=== PATIENT | male | born 1985 | race Caucasian/White ===

== ENCOUNTER 2016-11-13 23:56 | Emergency (ER) | payer OTHER ==
--- NOTE | 2016-11-14 01:19 | ED ORDER SUMMARY ---
..... Patient: JEANIE ABDUL OrderSheet [facility] VisitID: [id number] [address] [place] [address] 31y, M Registration Date/Time: 11/13/2016 ORDER SHEET Weight: 102.5 kg Allergies: No Known Drug Allergy GENERAL ORDERS: CBC w Diff Urgent (00:11/14/2016 Carina Mayo) (Ack 0:29 CHategekimana) (0:32 TBowen R.N.) CMP Urgent (00:11/14/2016 Carina Mayo) (Ack 0:29 CHategekimana) (0:32 TBowen R.N.) UA-Culture if indicated Urgent (00:11/14/2016 Carina Mayo) (Ack 0:29 CHategekimana) Amylase Urgent (00:11/14/2016 Carina Mayo) (Ack 0:28 CHategekimana) (0:32 TBowen R.N.) Lipase Urgent (00:11/14/2016 Carina Mayo) (Ack 0:28 CHategekimana) (0:32 TBowen R.N.) MEDICATION ORDERS: IV FLUIDS: IV Saline Lock (:11/14/2016 Carina Mayo) (0:32 TBowen R.N.) ORDER SHEET NOTES: [Electronically signed by Jesus Pelayo Dr. (11/14/2016)] [Electronically signed by Jamee Manrique R.N. (11/14/2016)] [Electronically locked/signed by Jamee Manrique R.N. (11/14/2016)]
--- NOTE | 2016-11-14 01:19 | ED CLINICAL REPORT ---
Clinical Report - Physicians/Mid Levels [facility] [address] [place] [address] 11/13/2016 23:57 Patient: JEANIE ABDUL Time Seen: 00:03; initial patient contact. Arrived- By private vehicle. Historian- patient. HISTORY OF PRESENT ILLNESS Chief Complaint: ABDOMINAL PAIN. This started last night and is now gone (resolved upon arrival in the emergency department). At its maximum, severity described as moderate. When seen in the E.D., it was gone. Modifying factors. Not worsened by anything. Not relieved by anything. It is described as cramping and it is described as located in the epigastric area and radiating to the upper back. The patient has had nausea. No loss of appetite, vomiting or diarrhea. No recent travel. Similar symptoms previously: Many times. Recent medical care: Not recently seen/assessed. REVIEW OF SYSTEMS No constipation, hematemesis, difficulty with urination, fever or chills. All systems otherwise negative, except as recorded above. PAST HISTORY Negative. Surgeries: No history of previous surgery. SOCIAL HISTORY Never smoker. Occasional alcohol use. No drug use. ADDITIONAL NOTES The nursing notes have been reviewed. PHYSICAL EXAM Vital Signs: 11/14/2016 00:06 BP: 162/101. HR: 76. RR: 16. O2 saturation: 99%. Temp: 98.4 F. Pain level now: 1/10. Have been reviewed. Hypertensive. Heart rate normal. Respiratory rate normal. Temperature normal. Oxygen saturation normal. Appearance: Alert. Oriented X3. No acute distress. Eyes: Eyes normal inspection. No scleral icterus. ENT: Dry mucous membranes present. Neck: Normal inspection. CVS: Normal heart rate and rhythm. Heart sounds normal. Respiratory: No respiratory distress. Breath sounds normal. Abdomen: Soft and nontender. Bowel sounds normal. No mass. Back: Normal inspection. No CVA tenderness. Skin: Normal skin color. No rash. Neuro: Oriented X 3. LABS, X-RAYS, AND EKG Laboratory Tests: CBC w Diff: (JORDON: 11/14/2016 00:30) ( MsgRcvd 11/14/2016 00:37) Final results Test Result Flag Units (Reference) WHITE BLOOD COUNT 12.5 H K/uL (4.5-11.5) RED BLOOD COUNT 5.18 M/uL (4.50-5.90) HEMOGLOBIN 15.5 gm/dL (13.5-17.5) HEMATOCRIT 45.7 % (41.0-53.0) MEAN CELL VOLUME 88 fL (80-100) MEAN CORPUSCULAR HGB 30 pg (26-34) MEAN CORPUSCULAR HGB CONC 34 g/dL (31-37) RED CELL DISTRIBUTION WIDTH 12.5 % (11.6-14.8) PLATELET COUNT 295 K/uL (150-400) NEUTROPHIL % 87.7 H % (50-75) LYMPH % 7.3 L % (25-40) MONO % 4.6 % (3-14) EOSINOPHIL % 0.3 % (0-4) BASOPHIL % 0.1 % (0-2) CMP: (JORDON: 11/14/2016 00:30) ( MsgRcvd 11/14/2016 00:51) Final results Test Result Flag Units (Reference) GLUCOSE 113 H mg/dL (70-110) BUN 10 mg/dL (7-18) CREATININE 0.9 mg/dL (0.6-1.3) Estimated GFR >60 mL/min Estimated GFR- >60 mL/min Note: Persistent reduction over 3 months in eGFR<60 mL/min/1.73 m2 defines CKD. Patients with eGFR values>=60 mL/min/1.73 m2 may also have CKD if evidence ofpersistent proteinuria. Additional information may be foundat www.kidney.org. SODIUM 141 mmol/L (136-145) POTASSIUM 3.9 mmol/L (3.5-5.1) CHLORIDE 104 mmol/L (98-107) CARBON DIOXIDE 26 mmol/L (21-32) CALCIUM 9.6 mg/dL (8.5-10.1) TOTAL PROTEIN 8.1 g/dL (6.4-8.2) ALBUMIN 4.5 g/dL (3.3-5.0) BILIRUBIN, TOTAL 0.8 mg/dL (0.0-1.0) ALKALINE PHOSPHATASE 42 L U/L (46-116) AST (SGOT) 18 U/L (15-37) ALT (SGPT) 46 U/L (12-78) LIPASE 157 U/L (73-393) AMYLASE 71 U/L (25-115) . PROGRESS AND PROCEDURES Disposition: Discharged home in good and improved condition. Condition: good. CLINICAL IMPRESSION Acute epigastric abdominal pain of unknown cause. INSTRUCTIONS Drink plenty of fluids. Your Current Medications: CONTINUE TAKING THE FOLLOWING MEDICATIONS: Allergy Oral. Prescription Medications: Hydrocodone/APAP 5mg / 325mg: take 1 orally every 6 hours as needed for pain. Dispense five (5). No refill. Bentyl 20 mg tablets: take 1 orally every 6 hours as needed for abdominal cramps or abdominal discomfort. Dispense thirty (30). No refill. Substitution is permissible. Follow-up: Follow up with your doctor in about three days. Call for an appointment. Screening today revealed the patient's blood pressure to be in the hypertensive range. The patient should follow up with a primary care provider for blood pressure management. (Electronically signed by Jesus Pelayo Dr. 11/14/2016 1:28)
--- NOTE | 2016-11-14 01:19 | ED NURSING NOTES ---
Clinical Report - Nurses [facility] [address] [place] [address] 11/13/2016 23:57 Patient: JEANIE ABDUL TRIAGE Triage time 00:06. Acuity: LEVEL 3. Chief Complaint: ABDOMINAL PAIN. --00:08 TonhowieB, R.N. 00:06 11/14/16. BP: 162/101. HR: 76. RR: 16. O2 saturation: 99%. Temp: 98.4 F. Pain level now: 08/11. --00:08 JameeB, R.N. Weight: 102.5 kg. Height/Length: 70 inches. BMI: 32.4. --00:06 JameeB, R.N. Medications Allergy Oral. --00:06 JameeB R.N. Allergies No Known Drug Allergy. --00:06 Tim, R.N. History Arrived by private vehicle. Historian: patient. This started just prior to arrival. ( pt complains of upper gastric pain). 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 PAST MEDICAL HX: Immunizations: up-to-date. SOCIAL HX: Never smoker. Occasional alcohol use. No drug use. No recent travel. No infectious disease exposure. No known contact with a sick individual. SELF HARM ASSESSMENT: A self harm assessment was performed. The patient answered "no" to the question "Have you recently felt down, depressed, or hopeless?", "Have you noticed less interest or pleasure in doing things?", "Do you have thoughts of harming or killing yourself?", "Are you here because you tried to hurt yourself?", "Have you ever tried to hurt yourself before today?", "Have you recently had thoughts about harming or killing others?" and "Do you have any dangerous items in your possession?". FALL RISK ASSESSMENT: Fall risk assessment completed. No fall risk identified. NUTRITIONAL RISK ASSESSMENT: The nutritional risk assessment revealed no deficiencies. FUNCTIONAL ASSESSMENT: Functional assessment: no impairments noted. LEARNING NEEDS ASSESSMENT: The learning needs assessment revealed no barriers. SKIN INTEGRITY ASSESSMENT: Skin integrity risk assessment completed. No skin integrity risk identified. --00: Flower Dumont PROBLEMS: no known problems. ADDITIONAL SURGERIES: no known surgeries. Interventions ID band on patient. To treatment room. --00: Flower Dumont PHYSICAL ASSESSMENT Ambulatory to room. GENERAL / NEURO / PSYCH: Alert. Oriented X 4. Appears in no acute distress. HEENT: Mucous membranes are pink. RESPIRATORY: Respirations not labored. Breath sounds within normal limits. CVS: Normal sinus rhythm noted. Capillary refill less than 2 seconds. GI / : Abdomen soft and nontender. Bowel sounds within normal limits. SKIN: Skin is warm and dry. --00: Flower Dumont NURSING PROGRESS NOTES Patient identifiers checked. Call light placed in reach. Side rails up. Bed placed in lowest position. Brakes of bed on. --00: Flower Dumont Patient gowned. --00: Flower Dumont 00:32 11/14/2016 Site #1 started via IV in the left antecubital space with an 20g angiocath, with aseptic technique and good blood return; one attempt. Blood drawn: rainbow set. Labeled in the presence of the patient and sent to the lab. Saline lock flushed with 10 mL saline. --: Flower Dumont DISPOSITION / DISCHARGE Departure time: 01:30. Condition at departure: improved. No learning barriers present. Discharge instructions provided and reviewed with the patient. Reviewed medication(s) side effects, precautions, dosing and course information. Prescription(s) given to the patient. Work note given. Patient verbalized understanding. Written instructions provided in Yakut. No warning instructions, treatment instructions, referrals given to the patient, diet instructions or activity restrictions. No follow up contact number given or stop smoking instructions. The patient was discharged by the physician. He was discharged home. He left the Emergency Department ambulatory and via private vehicle. Patient driving. FALL RISK ASSESSMENT: Fall risk assessment completed. No fall risk identified. --: Flower Dumont 01:32 11/14/16. BP: 154/68. HR: 64. RR: 16. O2 saturation: 99%. Temp: deferred. Pain level now: 0/10. --: Flower Dumont 01:33 11/14/2016 Site #1 removed upon discharge. Catheter intact. Bandaid applied. --01:33 Flower Dumont Locked/Released at 11/14/2016 1:33 by Flower Dumont
--- NOTE | 2016-11-14 01:19 | ED NURSING NOTES ---
Clinical Report - Nurses [facility] [address] [place] [address] 11/13/2016 23:57 Patient: JEANIE ABDUL TRIAGE Triage time 00:06. Acuity: LEVEL 3. Chief Complaint: ABDOMINAL PAIN. --00:08 TonhowieB, R.N. 00:06 11/14/16. BP: 162/101. HR: 76. RR: 16. O2 saturation: 99%. Temp: 98.4 F. Pain level now: 08/11. --00:08 JameeB, R.N. Weight: 102.5 kg. Height/Length: 70 inches. BMI: 32.4. --00:06 JameeB, R.N. Medications Allergy Oral. --00:06 JameeB R.N. Allergies No Known Drug Allergy. --00:06 Tim, R.N. History Arrived by private vehicle. Historian: patient. This started just prior to arrival. ( pt complains of upper gastric pain). 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 PAST MEDICAL HX: Immunizations: up-to-date. SOCIAL HX: Never smoker. Occasional alcohol use. No drug use. No recent travel. No infectious disease exposure. No known contact with a sick individual. SELF HARM ASSESSMENT: A self harm assessment was performed. The patient answered "no" to the question "Have you recently felt down, depressed, or hopeless?", "Have you noticed less interest or pleasure in doing things?", "Do you have thoughts of harming or killing yourself?", "Are you here because you tried to hurt yourself?", "Have you ever tried to hurt yourself before today?", "Have you recently had thoughts about harming or killing others?" and "Do you have any dangerous items in your possession?". FALL RISK ASSESSMENT: Fall risk assessment completed. No fall risk identified. NUTRITIONAL RISK ASSESSMENT: The nutritional risk assessment revealed no deficiencies. FUNCTIONAL ASSESSMENT: Functional assessment: no impairments noted. LEARNING NEEDS ASSESSMENT: The learning needs assessment revealed no barriers. SKIN INTEGRITY ASSESSMENT: Skin integrity risk assessment completed. No skin integrity risk identified. --00: Flower Dumont PROBLEMS: no known problems. ADDITIONAL SURGERIES: no known surgeries. Interventions ID band on patient. To treatment room. --00: Flower Dumont PHYSICAL ASSESSMENT Ambulatory to room. GENERAL / NEURO / PSYCH: Alert. Oriented X 4. Appears in no acute distress. HEENT: Mucous membranes are pink. RESPIRATORY: Respirations not labored. Breath sounds within normal limits. CVS: Normal sinus rhythm noted. Capillary refill less than 2 seconds. GI / : Abdomen soft and nontender. Bowel sounds within normal limits. SKIN: Skin is warm and dry. --00: Flower Dumont NURSING PROGRESS NOTES Patient identifiers checked. Call light placed in reach. Side rails up. Bed placed in lowest position. Brakes of bed on. --00: Flower Dumont Patient gowned. --00: Flower Dumont 00:32 11/14/2016 Site #1 started via IV in the left antecubital space with an 20g angiocath, with aseptic technique and good blood return; one attempt. Blood drawn: rainbow set. Labeled in the presence of the patient and sent to the lab. Saline lock flushed with 10 mL saline. --: Flower Dumont DISPOSITION / DISCHARGE Departure time: 01:30. Condition at departure: improved. No learning barriers present. Discharge instructions provided and reviewed with the patient. Reviewed medication(s) side effects, precautions, dosing and course information. Prescription(s) given to the patient. Work note given. Patient verbalized understanding. Written instructions provided in Albanian. No warning instructions, treatment instructions, referrals given to the patient, diet instructions or activity restrictions. No follow up contact number given or stop smoking instructions. The patient was discharged by the physician. He was discharged home. He left the Emergency Department ambulatory and via private vehicle. Patient driving. FALL RISK ASSESSMENT: Fall risk assessment completed. No fall risk identified. --: Flower Dumont 01:32 11/14/16. BP: 154/68. HR: 64. RR: 16. O2 saturation: 99%. Temp: deferred. Pain level now: 0/10. --: Flower Dumont 01:33 11/14/2016 Site #1 removed upon discharge. Catheter intact. Bandaid applied. --01:33 Flower Dumont Locked/Released at 11/14/2016 1:33 by Flower Dumont
--- NOTE | 2016-11-14 01:19 | ED ORDER SUMMARY ---
..... Patient: JEANIE ABDUL OrderSheet [facility] VisitID: [id number] [address] [place] [address] 31y, M Registration Date/Time: 11/13/2016 ORDER SHEET Weight: 102.5 kg Allergies: No Known Drug Allergy GENERAL ORDERS: CBC w Diff Urgent (00:11/14/2016 Carina Mayo) (Ack 0:29 CHategekimana) (0:32 TBowen R.N.) CMP Urgent (00:11/14/2016 Carina Mayo) (Ack 0:29 CHategekimana) (0:32 TBowen R.N.) UA-Culture if indicated Urgent (00:11/14/2016 Carina Mayo) (Ack 0:29 CHategekimana) Amylase Urgent (00:11/14/2016 Carina Mayo) (Ack 0:28 CHategekimana) (0:32 TBowen R.N.) Lipase Urgent (00:11/14/2016 Carina Mayo) (Ack 0:28 CHategekimana) (0:32 TBowen R.N.) MEDICATION ORDERS: IV FLUIDS: IV Saline Lock (:11/14/2016 Carina Mayo) (0:32 TBowen R.N.) ORDER SHEET NOTES: [Electronically signed by Jesus Pelayo Dr. (11/14/2016)] [Electronically signed by Jamee Manrique R.N. (11/14/2016)] [Electronically locked/signed by Jamee Manrique R.N. (11/14/2016)]
--- NOTE | 2016-11-14 01:33 | ED DISCHARGE INSTRUCTIONS ---
Patient: JEANIE ABDUL General Instructions [facility] VisitID: [id number] [address] [place] [address] 31y, M Registration Date/Time: 11/13/2016 Acute epigastric abdominal pain of unknown cause. INSTRUCTIONS Drink plenty of fluids. Your Current Medications: CONTINUE TAKING THE FOLLOWING MEDICATIONS: Allergy Oral. Prescription Medications: Hydrocodone/APAP 5mg / 325mg: take 1 orally every 6 hours as needed for pain. Dispense five (5). No refill. Bentyl 20 mg tablets: take 1 orally every 6 hours as needed for abdominal cramps or abdominal discomfort. Dispense thirty (30). No refill. Substitution is permissible. Follow-up: Follow up with your doctor in about three days. Call for an appointment. Screening today revealed the patient's blood pressure to be in the hypertensive range. The patient should follow up with a primary care provider for blood pressure management. ADDITIONAL INFORMATION Abdominal Pain,Uncertain Cause [Male] Based on your visit today, the exact cause of your abdominalpain is not clear. Your exam and tests do not indicate a dangerous cause at this time. However, the signs of a serious problem may take more time to appear. Although your evaluation was reassuring today, sometimes early in the course of many conditions, exam and lab tests can appear normal. Therefore, it is important for you to watch for any new symptoms or worsening of your condition. Causes It may not be obvious what caused your symptoms. Pay attention to things that do seem to make your symptoms worse or better and discuss this with your doctor when you follow up. Diagnosis The evaluation of abdominal pain in the emergency department may onlyrequire an exam by the doctor or it may include blood, urine or imaging studies, depending on many factors. Sometimes exams and tests can identify a cause but in many cases, a clear cause is not found. Further testing at follow up visits may help to suggest a clear diagnosis. Home Care Rest as much as possible until your next exam. Try to avoid any medications (unless otherwise directed by your doctor), foods, activities, or other factors that you may have contributed to your symptoms. Try to eat foods that you know that you have tolerated well in the past. Certain diets may be recommended for some conditions that cause abdominal pain. However, since the cause of your symptoms may not be clear, discuss your diet more with your primary care provider or specialist for further recommendations. Eating several small meals per day as opposed to 2 or 3 larger meals may help. Monitor closely for anything that may make your symptoms worse or better. Pay close attention to symptoms below that may indicate worsening of your condition. Follow Up and Precautions See your doctoras instructed or sooneror if your symptoms are not improving.In some cases, you may need more testing. When to Seek Medical Attention Contact your doctor or see medical attention ifany of the following occur: Pain is becoming worse You are unable to take your medications due to excessive vomiting Swelling of the abdomen Fever of 100.4F (38C) or higher, or as directed by your health care provider Blood in vomit or bowel movements (dark red or black color) Jaundice (yellow color of eyes and skin) New onset of weakness, dizziness or fainting New onset of chest, arm, back, neck or jaw pain Hydrocodone Bitartrate, Acetaminophen Oral tablet What is this medicine? ACETAMINOPHEN; HYDROCODONE (a set a FLORY iris fen; alejandro droe KOE done) is a pain reliever. It is used to treat mild to moderate pain. How should I use this medicine? Take this medicine by mouth. Swallow it with a full glass of water. Follow the directions on the prescription label. If the medicine upsets your stomach, take the medicine with food or milk. Do not take more than you are told to take. Talk to your signal constructor regarding the use of this medicine in children. This medicine is not approved for use in children. What side effects may I notice from receiving this medicine? Side effects that you should report to your doctor or health district manager primary care sales as soon as possible: allergic reactions like skin rash, itching or hives, swelling of the face, lips, or tongue breathing problems confusion feeling faint or lightheaded, falls stomach pain yellowing of the eyes or skin Side effects that usually do not require medical attention (report to your doctor or health district manager primary care sales if they continue or are bothersome): nausea, vomiting stomach upset What may interact with this medicine? alcohol antihistamines isoniazid medicines for depression, anxiety, or psychotic disturbances medicines for sleep muscle relaxants naltrexone narcotic medicines (opiates) for pain phenobarbital ritonavir tramadol What if I miss a dose? If you miss a dose, take it as soon as you can. If it is almost time for your next dose, take only that dose. Do not take double or extra doses. Where should I keep my medicine? Keep out of the reach of children. This medicine can be abused. Keep your medicine in a safe place to protect it from theft. Do not share this medicine with anyone. Selling or giving away this medicine is dangerous and against the law. Store at room temperature between 15 and 30 degrees C (59 and 86 degrees F). Protect from light. Keep container tightly closed. Throw away any unused medicine after the expiration date. Discard unused medicine and used packaging carefully. Pets and children can be harmed if they find used or lost packages. What should I tell my health care provider before I take this medicine? They need to know if you have any of these conditions: brain tumor Crohn's disease, inflammatory bowel disease, or ulcerative colitis drink more than 3 alcohol-containing drinks per day drug abuse or addiction head injury heart or circulation problems kidney disease or problems going to the bathroom liver disease lung disease, asthma, or breathing problems an unusual or allergic reaction to acetaminophen, hydrocodone, other opioid analgesics, other medicines, foods, dyes, or preservatives or trying to get breast-feeding What should I watch for while using this medicine? Tell your doctor or health district manager primary care sales if your pain does not go away, if it gets worse, or if you have new or a different type of pain. You may develop tolerance to the medicine. Tolerance means that you will need a higher dose of the medicine for pain relief. Tolerance is normal and is expected if you take the medicine for a long time. Do not suddenly stop taking your medicine because you may develop a severe reaction. Your body becomes used to the medicine. This does NOT mean you are addicted. Addiction is a behavior related to getting and using a drug for a non-medical reason. If you have pain, you have a medical reason to take pain medicine. Your doctor will tell you how much medicine to take. If your doctor wants you to stop the medicine, the dose will be slowly lowered over time to avoid any side effects. You may get drowsy or dizzy when you first start taking the medicine or change doses. Do not drive, use machinery, or do anything that may be dangerous until you know how the medicine affects you. Stand or sit up slowly. There are different types of narcotic medicines (opiates) for pain. If you take more than one type at the same time, you may have more side effects. Give your health care provider a list of all medicines you use. Your doctor will tell you how much medicine to take. Do not take more medicine than directed. Call emergency for help if you have problems breathing. The medicine will cause constipation. Try to have a bowel movement at least every 2 to 3 days. If you do not have a bowel movement for 3 days, call your doctor or health district manager primary care sales. Too much acetaminophen can be very dangerous. Do not take Tylenol (acetaminophen) or medicines that contain acetaminophen with this medicine. Many non-prescription medicines contain acetaminophen. Always read the labels carefully. Dicyclomine Hydrochloride Oral tablet What is this medicine? DICYCLOMINE (dye SYE kloe meen) is used to treat bowel problems including irritable bowel syndrome. How should I use this medicine? Take this medicine by mouth with a glass of water. Follow the directions on the prescription label. It is best to take this medicine on an empty stomach, 30 minutes to 1 hour before meals. Take your medicine at regular intervals. Do not take your medicine more often than directed. Talk to your signal constructor regarding the use of this medicine in children. Special care may be needed. While this drug may be prescribed for children as young as 6 months of age for selected conditions, precautions do apply. Patients over 65 years old may have a stronger reaction and need a smaller dose. What side effects may I notice from receiving this medicine? Side effects that you should report to your doctor or health district manager primary care sales as soon as possible: agitation, nervousness, confusion difficulty swallowing dizziness, drowsiness fast or slow heartbeat hallucinations pain or difficulty passing urine Side effects that usually do not require medical attention (report to your doctor or health district manager primary care sales if they continue or are bothersome): constipation headache nausea or vomiting sexual difficulty What may interact with this medicine? amantadine antacids benztropine digoxin disopyramide medicines for allergies, colds and breathing difficulties medicines for alzheimer's disease medicines for anxiety or sleeping problems medicines for depression or psychotic disturbances medicines for diarrhea medicines for pain metoclopramide tegaserod What if I miss a dose? If you miss a dose, take it as soon as you can. If it is almost time for your next dose, take only that dose. Do not take double or extra doses. Where should I keep my medicine? Keep out of the reach of children. Store at room temperature below 30 degrees C (86 degrees F). Protect from light. Throw away any unused medicine after the expiration date. What should I tell my health care provider before I take this medicine? They need to know if you have any of these conditions: difficulty passing urine esophagus problems or heartburn glaucoma heart disease, or previous heart attack myasthenia gravis prostate trouble stomach infection, or obstruction ulcerative colitis an unusual or allergic reaction to dicyclomine, other medicines, foods, dyes, or preservatives or trying to get breast-feeding What should I watch for while using this medicine? You may get drowsy, dizzy, or have blurred vision. Do not drive, use machinery, or do anything that needs mental alertness until you know how this medicine affects you. To reduce the risk of dizzy or fainting spells, do not sit or stand up quickly, especially if you are an older patient. Alcohol can make you more drowsy, avoid alcoholic drinks. Stay out of bright light and wear sunglasses if this medicine makes your eyes more sensitive to light. Avoid extreme heat (hot tubs, saunas). This medicine can cause you to sweat less than normal. Your body temperature could increase to dangerous levels, which may lead to heat stroke. Antacids can stop this medicine from working. If you get an upset stomach and want to take an antacid, make sure there is an interval of at least 1 to 2 hours before or after you take this medicine. Your mouth may get dry. Chewing sugarless gum or sucking hard candy, and drinking plenty of water may help. Contact your doctor if the problem does not go away or is severe. You have been given the following additional information: Abdominal Pain, Unknown Cause, (Male) Hydrocodone Bitartrate, Acetaminophen Oral tablet Dicyclomine Hydrochloride Oral tablet (Electronically signed by eJsus Pelayo Dr. 11/14/2016 1:28)
--- NOTE | 2016-11-14 01:34 | ED MED RECONCILIATION SUMMARY ---
Patient: JEANIE ABDUL Medication Reconciliation Report [facility] VisitID: [id number] [address] [place] [address] 31y, M Registration Date/Time: 11/13/2016 Weight: 102.5 kg Height/Length: 70 in. BMI: 32.4 ALLERGIES: No Known Drug Allergy The patient's Home Medications are listed below: CONTINUE TAKING THE FOLLOWING MEDICATIONS: Allergy Oral The source(s) of the original Home Medication information: Not obtained. The following Medications were given to the patient in the Emergency Department: None. The following Medications were prescribed to the patient: Hydrocodone/APAP 5mg / 325mg: take 1 orally every 6 hours as needed for pain. Dispense five (5). No refill. -- Jesus Pelayo Dr. Bentyl 20 mg tablets: take 1 orally every 6 hours as needed for abdominal cramps or abdominal discomfort. Dispense thirty (30). No refill. Substitution is permissible. -- Jesus Pelayo Dr.
--- NOTE | 2016-11-14 01:34 | ED MAR SUMMARY ---
..... Medication Administration Record [facility] [address] [place] [address] Patient: JEANIE ABDUL Visit ID: [id number] 31y, M Weight: 102.5 kg Height/Length: 70 in BMI: 32.4 ALLERGIES: No Known Drug Allergy
--- NOTE | 2016-11-14 01:34 | ED MED RECONCILIATION SUMMARY ---
Patient: JEANIE ABDUL Medication Reconciliation Report [facility] VisitID: [id number] [address] [place] [address] 31y, M Registration Date/Time: 11/13/2016 Weight: 102.5 kg Height/Length: 70 in. BMI: 32.4 ALLERGIES: No Known Drug Allergy The patient's Home Medications are listed below: CONTINUE TAKING THE FOLLOWING MEDICATIONS: Allergy Oral The source(s) of the original Home Medication information: Not obtained. The following Medications were given to the patient in the Emergency Department: None. The following Medications were prescribed to the patient: Hydrocodone/APAP 5mg / 325mg: take 1 orally every 6 hours as needed for pain. Dispense five (5). No refill. -- Jesus Pelayo Dr. Bentyl 20 mg tablets: take 1 orally every 6 hours as needed for abdominal cramps or abdominal discomfort. Dispense thirty (30). No refill. Substitution is permissible. -- Jesus Pelayo Dr.
--- NOTE | 2016-11-14 01:34 | ED MAR SUMMARY ---
..... Medication Administration Record [facility] [address] [place] [address] Patient: JEANIE ABDUL Visit ID: [id number] 31y, M Weight: 102.5 kg Height/Length: 70 in BMI: 32.4 ALLERGIES: No Known Drug Allergy
== END 2016-11-14 01:30 | disposition home or self-care (01) ==
LOC: ED SRH 23:56
DX: R10.13 Epigastric pain (principal)
CPT/HCPCS: 90100; 92235; 92530; 95059